=== PATIENT | male | born 1950 ===

== ENCOUNTER → 2024-07-27 13:54 | Outpatient (BNVA) | payer MEDICARE, MEDICAID, SELFPAY | PROVIDERS: Visit Provider Emergency Medicine | DX: R05.9 Cough, unspecified (principal) | CPT/HCPCS: 71046 ==

== ENCOUNTER 2024-07-30 13:39 | Outpatient (CLI) | payer MEDICARE, MEDICAID, SELFPAY ==
--- NOTE | 2024-07-30 13:45 | CTR_ITS ---
PROCEDURE INFORMATION: Exam: CT Chest Without Contrast; Diagnostic Exam date and time: 07/30/2024 1:46 PM Age: 74 years old Clinical indication: Abnormal findings; Abnormal radiologic exam of lung or chest; Abnormal chest xray, trachial deviation, coughing up blood x 4 days; Additional info: Abnormal chest x-ray. Trachial deviation. Coughing up blood TECHNIQUE: Imaging protocol: Diagnostic computed tomography of the chest without contrast. Radiation optimization: All CT scans at this facility use at least one of these dose optimization techniques: automated exposure control; mA and/or kV adjustment per patient size (includes targeted exams where dose is matched to clinical indication); or iterative reconstruction. COMPARISON: CR XR chest 2V* [id number] 07/27/2024 1:55 PM RADIATION DOSE METRICS: Total DLP (mGy-cm): 364.82 FINDINGS: Lungs: Rightward tracheal deviation is caused by a focal area of chronic capping/scarring in the right lung apex with associated traction bronchiectasis, which in turn causes traction upon the trachea. Focal area of scarring and traction bronchiectasis with some patchy consolidations are also present in the posterolateral segment of the right upper lobe. Scattered subcentimeter tree-in-bud nodules (more than 10) are seen throughout the right lung. Chronic scar and round atelectasis in the basal segments of the right lower lobe. Pleural spaces: Chronic calcified pleural plaques in the posterior right lung base. Heart: Calcifications of the aortic valve annulus. Coronary arteries: There is mild atherosclerotic calcification of the coronary arteries. Lymph nodes: Unremarkable. No enlarged lymph nodes. Vasculature: Ectasia of the mid ascending thoracic aorta measuring 4.1 cm. Mild diffuse calcific atherosclerosis of the aorta. Bones/joints: Bone demineralization. 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 Mild multilevel degenerative changes of the spine. No aggressive osseous lesions. Soft tissues: Unremarkable. CT/CT chest wo con [id number] IMPRESSION: 1. Rightward tracheal deviation is caused by a focal area of chronic capping/scarring in the right lung apex with associated traction bronchiectasis, which in turn causes traction upon the trachea. No measurable masses at this region, within the limits of this noncontrast exam, though I would recommend close follow-up in this patient presenting with hemoptysis. Occult neoplasia would be in the differential, although felt less likely considering the morphology of the area. 2. Focal area of scarring and traction bronchiectasis with some patchy consolidations are also present in the posterolateral segment of the right upper lobe. Mild superimposed pneumonia at the site is a possibility. 3. Scattered subcentimeter tree-in-bud nodules (more than 10) are seen throughout the right lung. Most probably of infectious/inflammatory etiology and not particularly concerning. 4. Chronic calcified pleural plaques in the posterior right lung base. 5. No other discrete findings to explain the patient's hemoptysis.
== END 2024-07-30 13:40 | disposition home or self-care (01) ==
PROVIDERS: Visit Provider Emergency Medicine
DX: R04.2 Hemoptysis (principal); J98.4 Other disorders of lung; J47.9 Bronchiectasis, uncomplicated; R91.8 Other nonspecific abnormal finding of lung field; J92.9 Pleural plaque without asbestos; J98.11 Atelectasis; I35.8 Other nonrheumatic aortic valve disorders; I25.10 Atherosclerotic heart disease of native coronary artery without angina pectoris; I77.810 Thoracic aortic ectasia; I70.0 Atherosclerosis of aorta; M85.80 Other specified disorders of bone density and structure, unspecified site; D18.09 Hemangioma of other sites; M47.9 Spondylosis, unspecified
CPT/HCPCS: 71250

== ENCOUNTER 2024-08-17 09:32 | Outpatient (CLI) | payer MEDICARE, MEDICAID, SELFPAY | END 2024-08-17 09:33 | disposition home or self-care (01) | PROVIDERS: PCP Family Medicine; Visit Provider Family Medicine | DX: R91.8 Other nonspecific abnormal finding of lung field (principal); R04.2 Hemoptysis; J47.9 Bronchiectasis, uncomplicated | CPT/HCPCS: 87015; 87116; 87206; 87801 ==

== ENCOUNTER 2024-08-18 10:17 | Outpatient (CLI) | payer MEDICARE, MEDICAID, SELFPAY | END 2024-08-18 10:18 | disposition home or self-care (01) | PROVIDERS: PCP Family Medicine; Visit Provider Family Medicine | DX: J47.9 Bronchiectasis, uncomplicated (principal) | CPT/HCPCS: 87015; 87116; 87206; 87801 ==

== ENCOUNTER 2024-08-19 10:23 | Outpatient (CLI) | payer MEDICARE, MEDICAID, SELFPAY | END 2024-08-19 10:24 | disposition home or self-care (01) | LOC: LAB 10:24 | PROVIDERS: PCP Family Medicine; Visit Provider Family Medicine | DX: R91.8 Other nonspecific abnormal finding of lung field (principal); J47.9 Bronchiectasis, uncomplicated | CPT/HCPCS: 87556 ==

== ENCOUNTER 2024-09-02 10:02 | Outpatient (CLI) | payer OTHER, MEDICAID, SELFPAY | END 2024-09-02 10:03 | disposition home or self-care (01) | PROVIDERS: PCP Family Medicine; Visit Provider Family Medicine | DX: R68.89 Other general symptoms and signs (principal); R91.8 Other nonspecific abnormal finding of lung field; R04.2 Hemoptysis; R05.9 Cough, unspecified | CPT/HCPCS: 87015; 87116; 87206; 87801 ==